=== PATIENT | female | born 1985 | race Caucasian/White ===

== ENCOUNTER 2023-07-22 07:51 | Emergency (ER) | payer MEDICAID ==
[2023-07-22 07:59] VITALS: BP 137/86; PULSE 75; RESP 18; TEMP 97.6; O2SAT 97
[2023-07-22] MEDS: HYDROcodone-ACET 10/325MG TAB PO ONE (08:45)
[2023-07-22] MEDS: KETOROLAC TROMETH 30 MG/ML 1ML VIAL IM ONE (08:46)
[2023-07-22] MEDS ORDERED: NAPR-746 PO (09:00)
[2023-07-22] MEDS ORDERED: CYCL-837 PO (09:00)
== END 2023-07-22 09:12 | disposition home or self-care (01) ==
LOC: ER 07:51
DX: M54.9 Dorsalgia, unspecified (principal); Z88.0 Allergy status to penicillin
CPT/HCPCS: 72100; 96372; 99283; J1885

== ENCOUNTER 2023-08-25 10:46 | Emergency (ER) | payer MEDICAID ==
[~2023-08-25] VITALS: Ht 152.4 cm; Wt 73.0 kg
[~2023-08-25 10:46] MED LIST: CYCL-837 PO; NAPR-746 PO
[2023-08-25] MEDS: HYDROcodone-ACET 5/325MG TAB PO ONE (12:28)
[2023-08-25] MEDS ORDERED: LIDO5DIS21 TOP (12:38)
[2023-08-25 12:50] VITALS: BP 142/96; PULSE 103; RESP 18; TEMP 97.6; O2SAT 98
== END 2023-08-25 12:38 | disposition home or self-care (01) ==
LOC: ER 10:46
DX: S33.5XXA Sprain of ligaments of lumbar spine, initial encounter (principal); Z88.0 Allergy status to penicillin; Z79.899 Other long term (current) drug therapy; X58.XXXA Exposure to other specified factors, initial encounter; Y93.89 Activity, other specified; Y92.89 Other specified places as the place of occurrence of the external cause; Y99.8 Other external cause status